=== PATIENT | male | born 1995 | race American Indian/Alaskan Native ===

== ENCOUNTER 2016-11-04 14:55 | Emergency (ER) | payer OTHER, BC ==
[2016-11-04 15:16] VITALS: BP 136/80
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
[2016-11-04] MEDS ORDERED: MOTRIN PO ONE (19:28)
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
== END 2016-11-04 21:22 | disposition home or self-care (01) ==
LOC: ED 14:55
DX: S39.012A Strain of muscle, fascia and tendon of lower back, initial encounter (principal); S20.212A Contusion of left front wall of thorax, initial encounter; V49.9XXA Car occupant (driver) (passenger) injured in unspecified traffic accident, initial encounter; Y92.488 Other paved roadways as the place of occurrence of the external cause; Y93.89 Activity, other specified; Y99.9 Unspecified external cause status
CPT/HCPCS: 72100